=== PATIENT | male | born 1960 | race African-American/Black ===

== ENCOUNTER 2018-04-08 09:51 | Emergency (ER) | payer MEDICAID ==
[~2018-04-08] VITALS: Ht 165.1 cm; Wt 130.0 kg
[2018-04-08] MEDS ORDERED: ONDANSETRON HCL 4MG/2ML VIAL IV STA (10:08)
[2018-04-08 10:41] LABS: MEAN CORPUSCULAR HEMOGLOBIN 32.4 pg (28.0-32.0); MEAN PLATELET VOLUME 8.2 fl (7.4-10.4); PLATELET 158 x1000/uL (130-400); RED BLOOD CELL COUNT 4.62 mill/uL (4.7-6.1); RED CELL DISTRIBUTION WIDTH 13.7 % (11.6-14.6)
[2018-04-08 10:49] LABS: CHLORIDE 98 mEq/L (98-107)
[2018-04-08] MEDS ORDERED: SODIUM CHLORIDE 0.9% 1,000 ML IV ONE (11:00)
[2018-04-08] MEDS ORDERED: PROCHLORPERAZINE 10MG/2ML VIAL IV PRN (11:00)
[2018-04-08] MEDS ORDERED: ACETAMINOPHEN 325MG TABLET PO ONE (11:00)
[2018-04-08 11:15] LABS: PLATELET ESTIMATE NORMAL
[2018-04-08 11:39] LABS: PROTHROMBIN TIME 10.7 sec (9.4-11.6)
[2018-04-08 12:47] LABS: CLARITY URINE CLEAR (CLEAR); COLOR URINE DARK YELLOW (YELLOW); KETONES URINE NEGATIVE (NEGATIVE); LEUKOCYTE ESTERASE URINE NEGATIVE (NEGATIVE); NITRITE URINE NEGATIVE (NEGATIVE); OCCULT BLOOD URINE 1+ (NEGATIVE); PH URINE 5.5 (4.5-8.0); PROTEIN URINE 1+ (NEGATIVE); SPECIFIC GRAVITY URINE 1.015 (1.005-1.030)
[2018-04-08] MEDS ORDERED: KETOROLAC 30MG/ML VIAL IV ONE (15:30)
[2018-04-08 15:53] VITALS: BP 137/81
== END 2018-04-08 16:39 | disposition home or self-care (01) ==
LOC: ER 11:14
DX: E86.0 Dehydration (principal); R17 Unspecified jaundice; R11.2 Nausea with vomiting, unspecified; R74.0 Nonspecific elevation of levels of transaminase and lactic acid dehydrogenase [LDH]; R31.9 Hematuria, unspecified; I10 Essential (primary) hypertension; F17.200 Nicotine dependence, unspecified, uncomplicated; M54.5 Low back pain; F12.10 Cannabis abuse, uncomplicated; R51 Headache
CPT/HCPCS: 36415; 70450; 80053; 81003; 83605; 83690; 84484; 85025; 85610; 93005; 96374; 96375; 99285; J1885; J2405; J7030; Z7610